=== PATIENT | male | born 1990 | race Caucasian/White ===

== ENCOUNTER 2016-08-23 01:21 | Inpatient (IN) | payer MEDICAID, SELFPAY ==
[2016-08-23] VITALS (20 sets, daily range): BP systolic 98–140; BP diastolic 53–77; O2SAT 99
[~2016-08-23] VITALS: Ht 165.1 cm; Wt 84.6 kg
[2016-08-23] MEDS ORDERED: MIDAZOLAM INJ 2 MG/2 ML VIAL (J2250) As Ordered ONE (03:36)
[2016-08-23] MEDS: MIDAZOLAM INJ 2 MG/2 ML VIAL (J2250) IV PRN ×2 (03:39→03:55)
[2016-08-23] MEDS ORDERED: PROPOFOL 1,000 MG/100 ML VIAL As Ordered ONE (03:52)
[2016-08-23] MEDS ORDERED: PROPOFOL 1,000 MG in APPROPRIATE DILUENT 1 EA IV SCH (04:00)
--- NOTE | 2016-08-23 05:00 | REPUSA ---
CLINICAL HISTORY: Endotracheal tube placement. COMMENTS: Single view of the chest reveals no evidence of active pleural or pulmonary parenchymal abnormality. The heart, mediastinum and pulmonary vessels appear normal. Endotracheal tube is in good position wit h its tip 1.6 cm above the level of the nikko. Enteric feeding tube is in good position with its tip at the level of the gastric body. IMPRESSION: Endotracheal tube is in good position with its tip 1.6 cm above the level of the nikko. Enteric feeding tube is in good position with its tip at the level of the gastric body. Thank you for your kind referral of this patient.
[2016-08-23] MEDS: PROPOFOL 1,000 MG in APPROPRIATE DILUENT 1 EA IV SCH ×3 (05:15→13:11)
[2016-08-23 05:32] LABS: ABG BASE EXCESS -1.7 (-2.0-2.0); ABG HCO3 22.1 MEQ/L (22.0-26.0); ABG PARTIAL PRESSURE CO2 34.8 mmHg (35.0-45.0); ABG PARTIAL PRESSURE O2 140.9 mmHg (75.0-100.0); ABG STANDARD HCO3 23.1 MEQ/L (22.0-26.0); ABG TOTAL CO2 23.1 MEQ/L (22.0-29.0)
[2016-08-23 05:58] LABS: MEAN CORPUSCULAR HEMOGLOBIN 29.9 pg (27.0-33.0); MEAN CORPUSCULAR HGB CONC 33.1 g/dl (32.0-36.5); MEAN CORPUSCULAR VOLUME 90.2 fl (80.0-96.0); RED CELL DISTRIBUTION WIDTH 12.5 % (11.5-14.5); WHITE BLOOD COUNT 8.7 K/mm3 (4.0-10.0)
--- NOTE | 2016-08-23 06:12 | HPE ---
DATE OF ADMISSION: 08/23/2016 Critical care: one hour this excludes all procedures. CRITICAL CARE HISTORY AND PHYSICAL: This 26-year-old male reportedly overdose on clonazepam and tramadol. Was thought secondary to recreational use and not a suicide attempt. He has no history of depression. Apparently was with other acquaintances that were known to "do drugs." He presented to [facility] emergency room (ER) lethargic, obtunded. They felt that he was unable to protect his airway despite a short-lived response to Romazicon and therefore, intubated the patient and sent him here. He is on mechanical ventilation, sedated and therefore, I am not able to obtain much of a history. Some history is obtained from his parents. He has no significant past medical history. SOCIAL HISTORY: He does smoke cigarettes and reportedly lives with his girlfriend. FAMILY HISTORY: No significant family history of lung disease. REVIEW OF SYSTEMS: Unobtainable. PHYSICAL EXAMINATION: Temperature is 97.2, pulse is 58, respiratory rate is 14, blood pressure is 98/ 54 with a mean arterial pressure of 69, oxygen saturation 96% on 0.40 FiO2. General: Patient is sedated on mechanical ventilation. No posturing or evidence of tremor. HEENT: Sclerae clear and anicteric. Pupils are approximately 3 mm and reactive to light. Corneal reflex is normal. Mucous membranes are moist without lesions. Endotracheal tube is in place. Neck is short in length. No thyromegaly. Elevated jugular venous pulse (JVP). Normal carotid upstroke bilaterally. Thyroid is normal without nodularity. Cardiac: Regular S1, S2. Without audible murmur, rub or gallop. No elevated JVP. No peripheral edema. Pulmonary: Clear to auscultation. Without rales, rhonchi or wheezes. No accessory muscle use. Abdomen: Soft, nontender, nondistended. No hepatosplenomegaly. With hypoactive bowel sounds. Extremities: No cyanosis, clubbing or edema. Musculoskeletal: Well-developed musculoskeletal system without evidence of joint effusion or fracture. Neurologic: No unilateral weakness, tremor or evidence of seizure activity. No posturing. Corneal reflex is normal. Pupillary reflex is normal. No evidence of head trauma. Skin: No rashes, jaundice or bruising. He has multiple tattoos over his arms, chest and legs. Laboratory evaluation is yet to be obtained here. However, at the outside hospital, the only abnormalities were a slightly elevated hemoglobin. Tylenol was less 15. Lactic acid was less than 2. Salicylate level was less than 0.03. TSH was normal. UA was only positive for marijuana. EKG showed sinus tachycardia with a heart rate of 126. He is much less tachycardiac now. Chest x-ray shows endotracheal tube approximately 2.4 cm above the nikko. There is no infiltrate. No evidence of aspiration. No evidence of pneumothorax. IMPRESSION: Respiratory failure secondary to drug overdose. Does not appear to be a suicide attempt. Plan is to keep the patient sedated today with propofol with neurologic checks. Will remove sedation tomorrow morning, perform sedation vacation and a trial of extubation if he is neurologically aware. Critical attention is required to his drug overdose. Will obtain EKG to ensure no toxicity from the injection of the medications. Will continue to monitor for arrhythmias and seizure activity. Blood work is pending. MTDD
[2016-08-23 06:22] LABS: ALBUMIN 3.3 GM/DL (3.2-5.2); ALBUMIN/GLOBULIN RATIO 1.38 (1.00-1.93); ALKALINE PHOSPHATASE 47 U/L (45-117); ALT/SGPT 20 U/L (12-78); ANION GAP 7 MEQ/L (8-16); AST/SGOT 14 U/L (15-37); BILIRUBIN,TOTAL 0.9 MG/DL (0.2-1.0); BLOOD UREA NITROGEN 9 MG/DL (7-18); CALCIUM LEVEL 8.3 MG/DL (8.5-10.1); CARBON DIOXIDE LEVEL 23 MEQ/L (21-32); CHLORIDE LEVEL 114 MEQ/L (98-107); CHOLESTEROL LEVEL 136 MG/DL (< 200); CREATININE FOR GFR 0.83 MG/DL (0.70-1.30); GLOMERULAR FILTRATION RATE > 60.0 (>60); GLUCOSE, FASTING 88 MG/DL (70-105); PHOSPHORUS LEVEL 2.2 MG/DL (2.5-4.9); POTASSIUM SERUM 3.9 MEQ/L (3.5-5.1); SODIUM LEVEL 144 MEQ/L (136-145); TOTAL PROTEIN 5.7 GM/DL (6.4-8.2); TRIGLYCERIDES LEVEL 153 MG/DL (<150)
[2016-08-23] MEDS: IPRATROPIUM 0.5MG/ALBUTEROL 2.5MG INH SOL UD 3ML (DUONEB)(J7620) NEB SCH ×4 (08:00→20:00)
--- NOTE | 2016-08-23 08:49 | ECGEPIP ---
Stationary ECG Study [facility] Test Date: 2016-08-23 Pat Name: RAYNE TUCKER Department: Room: [place] [address] Gender: M Senior Manager [employer]: KATHIA : 1990 Requested By: ALISA De La Rosa Order Number: [id number] Reading MD: Flor Baum Measurements Intervals [place] Rate: 56 P: 47 CA: 207 QRS: 27 QRSD: 103 T: 59 QT: 440 QTc: 426 Interpretive Statements SINUS BRADYCARDIA 1ST DEGREE BLOCK INCOMPLETE RIGHT BUNDLE BRANCH BLOCK NOPRIOR Electronically Signed On 08-23-2016 8:48:52 EST by Flor Baum
[2016-08-23] MEDS ORDERED: CHLORHEXIDINE GLUCONATE 0.12 % 15ML UDC (PERIDEX ORAL RINSE) MT SCH (09:00)
[2016-08-23] MEDS ORDERED: PANTOPRAZOLE 40MG INJ (PROTONIX) (C9113) IV SCH ×2 (09:00→21:00)
[2016-08-23] MEDS ORDERED: ENOXAPARIN 40 MG/0.4 ML SYRINGE (J1650) SC SCH (09:00)
[2016-08-23] MEDS ORDERED: NS 500 ML IV ONE (12:30)
[2016-08-24] VITALS: BP 107/71
[2016-08-24 04:00] VITALS: BP 132/78
[2016-08-24 05:08] LABS: MEAN CORPUSCULAR HEMOGLOBIN 30.7 pg (27.0-33.0); MEAN CORPUSCULAR HGB CONC 33.7 g/dl (32.0-36.5); MEAN CORPUSCULAR VOLUME 91.2 fl (80.0-96.0); RED CELL DISTRIBUTION WIDTH 12.3 % (11.5-14.5)
[2016-08-24 05:21] LABS: ALBUMIN 3.5 GM/DL (3.2-5.2); ALBUMIN/GLOBULIN RATIO 1.13 (1.00-1.93); ALKALINE PHOSPHATASE 61 U/L (45-117); ALT/SGPT 19 U/L (12-78); ANION GAP 7 MEQ/L (8-16); AST/SGOT 14 U/L (15-37); BILIRUBIN,TOTAL 1.2 MG/DL (0.2-1.0); BLOOD UREA NITROGEN 9 MG/DL (7-18); CALCIUM LEVEL 8.4 MG/DL (8.5-10.1); CARBON DIOXIDE LEVEL 26 MEQ/L (21-32); CHLORIDE LEVEL 109 MEQ/L (98-107); GLOMERULAR FILTRATION RATE > 60.0 (>60); GLUCOSE, FASTING 73 MG/DL (70-105); POTASSIUM SERUM 4.1 MEQ/L (3.5-5.1); SODIUM LEVEL 142 MEQ/L (136-145); TOTAL PROTEIN 6.6 GM/DL (6.4-8.2)
--- NOTE | 2016-08-24 07:00 | DSES ---
DATE OF ADMISSION: 08/23/2016 DATE OF DISCHARGE: 08/24/2016 ADMISSION DIAGNOSES: Respiratory failure. Drug overdose. DESCRIPTION OF HOSPITALIZATION: Mr. Rivas is a 26-year-old male who presented to the [place] emergency room with altered mental status, obtundation with history of clonazepam and tramadol use. He was unable to protect his airway and therefore he was intubated and transferred here. He had improved sensation throughout the day and therefore I extubated him yesterday evening. He has been monitored overnight without any evidence of seizure activity or abnormalities on his EKG. This morning he feels well and desires to go home. He was evaluated by psychiatry. There was no evidence of depression or suicide attempt. He has no significant past medical history and takes no medications at home. He was therefore discharged home with his long-time girlfriend. DISCHARGE MEDICATIONS: None. FOLLOWUP: 1. Recommended obtaining a primary care physician. 2. Activity as tolerated. 3. Diet as tolerated. OTHER INSTRUCTIONS: Do not take any sedative medication or pain medication unless under direct care physician. DISCHARGE DIAGNOSES: 1. Respiratory failure. 2. Drug overdose. Discharge physical exam: T98.7 P94 BP127/74 RR18 97% on RA Gen: awake, alert, oriented X3 Heent: sclera clear, anicteric. Mucous membranes moist without lesion. Neck: supple, no tracheal deviation. No thyromegaly. Lymph: no cervical, supraclavicular or axillary adenopathy Card: Regular s1, s2 no m/r/g. No elevated JVP. Pulm: Clear to auscultation without rales, rhonchi, or wheeze. No accessory muscle use. Abd: Normoactive bowel sounds. No hepatosplenomegaly. Ext: No cyanosis, clubbing or edema Skin: No rash, jaundice or bruising. MTDD
[2016-08-24 07:08] VITALS: BP 127/74
--- NOTE | 2016-08-24 10:45 | CR ---
DATE OF CONSULTATION: 08/23/2016 HISTORY OF PRESENT ILLNESS: This is a 26-year-old white man who was admitted after he took an overdose of clonazepam and tramadol, according to the records. The patient says that all he took was two pills of Xanax that were given to him by a friend. He says that he did not take any tramadol. However, the patient apparently was with a group of other people who apparently were all doing drugs. He presented to the [facility] emergency room very lethargic and obtunded. He responded to Romazicon, but he ended up being intubated and admitted to the hospital. The patient says that he was just using the drugs recreationally. He says that he has not used drugs for a long time. He says that he was in group home from 2009 until 2014 and he says that he had not used drugs since then. He denies feeling depressed. I am not eliciting any mood symptoms. He says that he has never made any suicidal attempts. PAST PSYCHIATRIC HISTORY: He has never had any inpatient or outpatient psychiatric treatment. He has never had any suicidal attempts. FAMILY HISTORY: There is no psychiatric illness in his family and no history of suicides in the family. ABUSE HISTORY: He denies any history of any physical or sexual abuse. SUBSTANCE ABUSE HISTORY: He says that he had trouble with abusing cannabis, but that was before he went to group home in 2009. SOCIAL HISTORY: The patient says that he has a girlfriend and he has a daughter that he really cares a lot about and he says that everything in his life is fairly stable right now. MENTAL STATUS EXAMINATION: He is alert and oriented times three. Eye contact is fairly good. He is sitting up in a chair. He is verbally spontaneous. There is no formal thought disorder noted. He says his mood is good. His affect is full range and appropriate. He is not psychotic. He is not suicidal or homicidal. Concentration is fair. Memory is intact. Insight and judgment are good. DIAGNOSIS: No diagnosis. RECOMMENDATIONS: At this point, the patient says that the overdose was recreational and therefore accidental. He denies being suicidal. He has no psychiatric history. Therefore, the patient is not committable at this point from a psychiatric [id number].
== END 2016-08-24 07:30 | disposition home or self-care (01) | DRG 812 ==
LOC: M ICU 03:19
PROVIDERS: ADMIT Internal Medicine Pulmonary Disease; ATTEND Internal Medicine Pulmonary Disease
DX: T40.4X1A Poisoning by other synthetic narcotics, accidental (unintentional), initial encounter (principal); J96.90 Respiratory failure, unspecified, unspecified whether with hypoxia or hypercapnia; F17.210 Nicotine dependence, cigarettes, uncomplicated

== ENCOUNTER → 2021-10-18 | Outpatient (CLI) | payer MEDICAID, OTHER | LOC: M RAD 07:05 | PROVIDERS: ATTEND Physician Assistant | DX: Z31.69 Encounter for other general counseling and advice on procreation (principal) ==

== ENCOUNTER → 2023-02-27 | Outpatient (REF) | payer OTHER | LOC: M SMT 14:11 | PROVIDERS: ATTEND Physician Assistant | DX: Z31.69 Encounter for other general counseling and advice on procreation (principal) ==

== ENCOUNTER → 2023-08-02 | Outpatient (REF) | payer BC, OTHER | LOC: M SMT 15:55 | PROVIDERS: ATTEND Physician Assistant | DX: Z31.69 Encounter for other general counseling and advice on procreation (principal) ==

== ENCOUNTER → 2023-08-31 | Outpatient (REF) | payer BC, OTHER | LOC: M SMT 13:57 | PROVIDERS: ATTEND Physician Assistant | DX: Z31.69 Encounter for other general counseling and advice on procreation (principal); Z53.9 Procedure and treatment not carried out, unspecified reason ==

== ENCOUNTER → 2023-12-13 | Outpatient (CLI) | payer BC ==
[2023-12-13 09:45] LABS: ESTRADIOL 27.8 PG/ML (<39.8); LUTEINIZING HORMONE 4.5 mIU/ML (1.5-9.3)
[2023-12-13 10:01] LABS: FOLLICLE STIMULATING HORMONE 4.9 mIU/ML (1.4-18.1)
== END ==
LOC: M LAB 08:37
PROVIDERS: ATTEND Physician Assistant
DX: Z31.69 Encounter for other general counseling and advice on procreation (principal)